=== PATIENT | female | born 1940 | race Caucasian/White ===

== ENCOUNTER 2018-10-18 19:30 | Inpatient (IN) | payer OTHER ==
[~2018-10-18] VITALS: Ht 170.2 cm; Wt 85.7 kg
[2018-10-18 19:32] VITALS: BP_SYST 147
[2018-10-18] MEDS ORDERED: NACL 0.9% 1,000 ML IV ONE (20:03)
[2018-10-18] MEDS ORDERED: IPRATROPIUM BROM 0.5 MG/2.5 ML VIAL.NEB (ATROVENT) IH ONE (20:15)
[2018-10-18] MEDS ORDERED: methylPREDNISolone SOD SUCC/PF 62.5 MG/ML VIAL IVP ONE (20:15)
[2018-10-18] MEDS ORDERED: ALBUTEROL SULFATE 0.083% 2.5 MG/3 ML VIAL.NEB IH ONE (20:15)
[2018-10-18] MEDS ORDERED: ASPIRIN 81 MG TAB.CHEW PO ONE (20:15)
[2018-10-18 20:41] LABS: HEMOGLOBIN 13.7 g/dL (12.0-16.0); MEAN CORPUSCULAR HEMOGLOBIN 31 pg (27-31); MEAN CORPUSCULAR HGB CONC 33 % (32-36); MEAN CORPUSCULAR VOLUME 92 fL (79.0-98.0); RED BLOOD CELL COUNT(AUTO) 4.44 MIL/uL (4.2-6.2); RED CELL DISTRIBUTION WIDTH 14.8 % (9.0-15.0)
[2018-10-18 20:42] LABS: BASOPHILS % (AUTO) 0.7 % (0.0-2.0); LYMPHOCYTES # (AUTO) 0.7 K/uL (1.0-5.5); MONOCYTES # (AUTO) 0.5 K/uL (0.0-1.0); MONOCYTES % (AUTO) 8.2 % (1.7-9.3); NEUTROPHILS # (AUTO) 4.8 K/uL (1.8-7.7); NEUTROPHILS % (AUTO) 80.1 % (40.0-70.0); PLATELET COUNT (AUTO) 262 K/uL (130-430)
[2018-10-18 20:49] LABS: PROTHROMBIN TIME 9.8 SECS (9.5-12.5)
[2018-10-18 22:03] LABS: ANION GAP 6 (5-15); CHLORIDE 108 mmol/L (98-107); CREATININE 0.79 mg/dL (0.55-1.30); GLUCOSE 104 mg/dL (70-99); POTASSIUM 3.9 mmol/L (3.5-5.1); SODIUM SERUM 137 mmol/L (136-145); UREA NITROGEN, BLOOD 22 mg/dL (8-21)
[2018-10-18 22:08] LABS: ALANINE AMINOTRANSFERASE 29 U/L (12-78); AMYLASE 45 U/L (0-100); ASPARTATE AMINOTRANSFERASE 25 U/L (10-37); LIPASE 118 U/L (73-393); TOTAL BILIRUBIN 0.3 mg/dL (0.0-1.0)
[2018-10-18] MEDS ORDERED: LISI40TA4 PO (22:16)
[2018-10-18] MEDS ORDERED: ALBMDI INH (22:18)
[2018-10-18] MEDS ORDERED: IPRA4AER INH (22:18)
[2018-10-18] MEDS ORDERED: FLUT1DIS5 IH (22:18)
[2018-10-18 22:30] LABS: BILIRUBIN,URINE NEGATIVE (NEGATIVE); BLOOD, URINE NEGATIVE (NEGATIVE); CLARITY/URINE CLEAR (CLEAR); COLOR,URINE YELLOW (YELLOW); GLUCOSE,URINE 1+ (NEGATIVE); KETONES,URINE NEGATIVE (NEGATIVE); LEUKOCYTE ESTERASE ,URINE TRACE (NEGATIVE); NITRITE, URINE NEGATIVE (NEGATIVE); PH,URINE 5.5 (5.0-8.0); PROTEIN URINE NEGATIVE (NEGATIVE); UROBILINOGEN,URINE 0.2 (0.2-1.0)
[2018-10-18 22:47] LABS: BACTERIA,URINE FEW /HPF (None Seen); RBC,URINE 0-3 /HPF (0-3)
[2018-10-19 00:27] VITALS: BP_SYST 158
[2018-10-19] MEDS: guaiFENesin/DEXTROMETHORPHAN 10 ML UDC PO PRN ×4 (01:52→22:04)
[2018-10-19] MEDS ORDERED: HYDROcodone/ACETAMIN 10-325 MG TAB PO PRN (06:30)
[2018-10-19] MEDS ORDERED: HYDROcodone/ACETAMIN 5-325 MG TAB (NORCO/ VICODIN) PO PRN (06:30)
[2018-10-19] MEDS ORDERED: LORazepam 2 MG/ML VIAL IVP PRN (06:30)
[2018-10-19] MEDS ORDERED: ACETAMINOPHEN 325 MG TABLET PO PRN (06:30)
[2018-10-19] MEDS ORDERED: ONDANSETRON HCL 4 MG/2 ML VIAL IVP PRN (06:30)
[2018-10-19] MEDS ORDERED: AZITHROMYCIN 500 MG in NS 250 ML IV SCH ×2 (06:30→09:00)
[2018-10-19 07:03] VITALS: BP_SYST 158
[2018-10-19] MEDS: ALBUTEROL SULFATE 0.083% 2.5 MG/3 ML VIAL.NEB INH SCH ×5 (07:06→23:07)
[2018-10-19] MEDS: IPRATROPIUM BROM 0.5 MG/2.5 ML VIAL.NEB (ATROVENT) INH SCH ×5 (07:06→23:07)
[2018-10-19 08:00] VITALS: BP_SYST 143
[2018-10-19] MEDS ORDERED: methylPREDNISolone SOD SUCC 40 MG/ML VIAL IVP SCH (09:00)
[2018-10-19] MEDS ORDERED: NON-FORMULARY MEDICATION (Fluticasone/Salmeterol (Advair 500-50 Diskus) 1 EACH) IH ONE (09:00)
[2018-10-19] MEDS: LISINOPRIL 20 MG TABLET PO SCH (09:32)
[2018-10-19] MEDS ORDERED: methylPREDNISolone SOD SUCC 40 MG/ML VIAL IVP ONE (11:30)
[2018-10-19 11:45] VITALS: BP_SYST 134
[2018-10-19] MEDS ORDERED: ENOXAPARIN SODIUM 40 MG/0.4 ML SYRINGE SUBCUT ONE (12:30)
[2018-10-19] MEDS: methylPREDNISolone SOD SUCC 40 MG/ML VIAL IVP SCH ×2 (13:05→22:00)
[2018-10-19] MEDS: LEVOFLOXACIN 500 MG/D5W 100 ML IV SCH (13:05)
[2018-10-19] MEDS: NORMAL SALINE 5 ML DISP.SYRIN IVF SCH ×2 (13:12→22:05)
[2018-10-19 15:15] VITALS: BP_SYST 118
[2018-10-19 19:43] VITALS: BP_SYST 128
[2018-10-20] VITALS (7 sets, daily range): BP systolic 137–145
[2018-10-20] MEDS: IPRATROPIUM BROM 0.5 MG/2.5 ML VIAL.NEB (ATROVENT) INH SCH ×6 (03:00→23:37)
[2018-10-20] MEDS: ALBUTEROL SULFATE 0.083% 2.5 MG/3 ML VIAL.NEB INH SCH ×6 (03:00→23:37)
[2018-10-20] MEDS: methylPREDNISolone SOD SUCC 40 MG/ML VIAL IVP SCH ×3 (05:30→21:55)
[2018-10-20] MEDS: NORMAL SALINE 5 ML DISP.SYRIN IVF SCH ×3 (05:35→22:02)
[2018-10-20 07:07] LABS: ANION GAP 6 (5-15); C-REACTIVE PROTEIN QUANT < 0.2 mg/dL (0-0.5); CALCIUM 8.8 mg/dL (8.4-11.0); CHLORIDE 107 mmol/L (98-107); CREATININE 0.95 mg/dL (0.55-1.30); GLUCOSE 146 mg/dL (70-99); POTASSIUM 4.1 mmol/L (3.5-5.1); SODIUM SERUM 138 mmol/L (136-145); UREA NITROGEN, BLOOD 22 mg/dL (8-21)
[2018-10-20 07:10] LABS: HEMATOCRIT 39.9 % (36-48); HEMOGLOBIN 13.3 g/dL (12.0-16.0); MEAN CORPUSCULAR HEMOGLOBIN 31 pg (27-31); MEAN CORPUSCULAR HGB CONC 33 % (32-36); MEAN CORPUSCULAR VOLUME 92 fL (79.0-98.0); RED BLOOD CELL COUNT(AUTO) 4.32 MIL/uL (4.2-6.2)
[2018-10-20 07:11] LABS: BASOPHILS % (AUTO) 0.2 % (0.0-2.0); LYMPHOCYTES # (AUTO) 0.9 K/uL (1.0-5.5); LYMPHOCYTES % (AUTO) 7.5 % (20.5-51.5); MONOCYTES # (AUTO) 0.7 K/uL (0.0-1.0); MONOCYTES % (AUTO) 5.5 % (1.7-9.3); NEUTROPHILS # (AUTO) 10.4 K/uL (1.8-7.7); NEUTROPHILS % (AUTO) 86.8 % (40.0-70.0); PLATELET COUNT (AUTO) 270 K/uL (130-430)
[2018-10-20 08:12] LABS: ERYTHROCYTE SEDIMENTATION RATE 7 MM/HR (0-20)
[2018-10-20] MEDS: LEVOFLOXACIN 500 MG/D5W 100 ML IV SCH (08:45)
[2018-10-20] MEDS: LISINOPRIL 20 MG TABLET PO SCH (08:56)
[2018-10-20] MEDS: ENOXAPARIN SODIUM 40 MG/0.4 ML SYRINGE SUBCUT SCH (08:57)
[2018-10-20] MEDS: guaiFENesin/DEXTROMETHORPHAN 10 ML UDC PO PRN (21:59)
[2018-10-21] MEDS: IPRATROPIUM BROM 0.5 MG/2.5 ML VIAL.NEB (ATROVENT) INH SCH ×5 (03:00→23:36)
[2018-10-21] MEDS: ALBUTEROL SULFATE 0.083% 2.5 MG/3 ML VIAL.NEB INH SCH ×5 (03:00→23:36)
[2018-10-21] MEDS: methylPREDNISolone SOD SUCC 40 MG/ML VIAL IVP SCH ×3 (05:25→19:29)
[2018-10-21] MEDS: NORMAL SALINE 5 ML DISP.SYRIN IVF SCH ×3 (05:27→21:36)
[2018-10-21 07:24] LABS: ALANINE AMINOTRANSFERASE 30 U/L (12-78); ALBUMIN 2.9 g/dL (3.4-4.8); ANION GAP 4 (5-15); ASPARTATE AMINOTRANSFERASE 28 U/L (10-37); CALCIUM 8.8 mg/dL (8.4-11.0); CHLORIDE 105 mmol/L (98-107); CREATININE 0.84 mg/dL (0.55-1.30); GLUCOSE 146 mg/dL (70-99); POTASSIUM 4.3 mmol/L (3.5-5.1); SODIUM SERUM 137 mmol/L (136-145); TOTAL BILIRUBIN 0.2 mg/dL (0.0-1.0); UREA NITROGEN, BLOOD 30 mg/dL (8-21)
[2018-10-21 07:42] LABS: C-REACTIVE PROTEIN QUANT < 0.2 mg/dL (0-0.5)
[2018-10-21 07:50] VITALS: BP_SYST 142
[2018-10-21] MEDS: BUDESONIDE 0.5 MG/2 ML AMPUL.NEB INH SCH ×2 (08:00→20:05)
[2018-10-21 08:01] LABS: HEMATOCRIT 39.7 % (36-48); HEMOGLOBIN 13.2 g/dL (12.0-16.0); MEAN CORPUSCULAR HEMOGLOBIN 31 pg (27-31); MEAN CORPUSCULAR HGB CONC 33 % (32-36); MEAN CORPUSCULAR VOLUME 92 fL (79.0-98.0); PLATELET COUNT (AUTO) 280 K/uL (130-430); RED BLOOD CELL COUNT(AUTO) 4.32 MIL/uL (4.2-6.2); WHITE BLOOD COUNT (AUTO) 12.3 K/uL (4.8-10.8)
[2018-10-21 08:02] LABS: BASOPHILS % (AUTO) 0.1 % (0.0-2.0); LYMPHOCYTES # (AUTO) 0.9 K/uL (1.0-5.5); LYMPHOCYTES % (AUTO) 7.4 % (20.5-51.5); MONOCYTES # (AUTO) 0.4 K/uL (0.0-1.0); MONOCYTES % (AUTO) 3.3 % (1.7-9.3); NEUTROPHILS % (AUTO) 89.2 % (40.0-70.0)
[2018-10-21] MEDS: LEVOFLOXACIN 500 MG/D5W 100 ML IV SCH (08:47)
[2018-10-21] MEDS: ENOXAPARIN SODIUM 40 MG/0.4 ML SYRINGE SUBCUT SCH (08:47)
[2018-10-21] MEDS: LISINOPRIL 20 MG TABLET PO SCH (08:48)
[2018-10-21 08:56] LABS: ERYTHROCYTE SEDIMENTATION RATE 7 MM/HR (0-20)
[2018-10-21 11:45] VITALS: BP_SYST 148
[2018-10-21] MEDS ORDERED: D5/0.45 NS 1,000 ML IV SCH (13:15)
[2018-10-21 15:35] VITALS: BP_SYST 143
[2018-10-21 20:36] VITALS: BP_SYST 140
[2018-10-21] MEDS ORDERED: FLUTICASONE 500 mCg/SALMETEROL 50 mCg DISKUS W.DEV INH SCH (21:00)
[2018-10-21] MEDS ORDERED: ADVAIR INH SCH (21:00)
[2018-10-21] MEDS: guaiFENesin/DEXTROMETHORPHAN 10 ML UDC PO PRN (21:33)
[2018-10-22 00:09] VITALS: BP_SYST 147
[2018-10-22] MEDS: IPRATROPIUM BROM 0.5 MG/2.5 ML VIAL.NEB (ATROVENT) INH SCH ×5 (03:00→19:49)
[2018-10-22] MEDS: ALBUTEROL SULFATE 0.083% 2.5 MG/3 ML VIAL.NEB INH SCH ×5 (03:00→19:48)
[2018-10-22] MEDS: methylPREDNISolone SOD SUCC 40 MG/ML VIAL IVP SCH ×2 (06:16→18:12)
[2018-10-22] MEDS: NORMAL SALINE 5 ML DISP.SYRIN IVF SCH ×3 (06:16→23:27)
[2018-10-22] MEDS: BUDESONIDE 0.5 MG/2 ML AMPUL.NEB INH SCH ×2 (07:00→19:49)
[2018-10-22 07:51] LABS: ANION GAP 9 (5-15); CALCIUM 8.3 mg/dL (8.4-11.0); CHLORIDE 106 mmol/L (98-107); GLUCOSE 147 mg/dL (70-99); SODIUM SERUM 141 mmol/L (136-145); UREA NITROGEN, BLOOD 25 mg/dL (8-21)
[2018-10-22 08:07] VITALS: BP_SYST 147
[2018-10-22 08:29] LABS: HEMATOCRIT 38.7 % (36-48); HEMOGLOBIN 12.7 g/dL (12.0-16.0); RED BLOOD CELL COUNT(AUTO) 4.19 MIL/uL (4.2-6.2); WHITE BLOOD COUNT (AUTO) 11.3 K/uL (4.8-10.8)
[2018-10-22 08:30] LABS: BASOPHILS % (AUTO) 0.1 % (0.0-2.0); LYMPHOCYTES # (AUTO) 1.2 K/uL (1.0-5.5); LYMPHOCYTES % (AUTO) 10.7 % (20.5-51.5); MEAN CORPUSCULAR HEMOGLOBIN 30 pg (27-31); MEAN CORPUSCULAR HGB CONC 33 % (32-36); MEAN CORPUSCULAR VOLUME 92 fL (79.0-98.0); MONOCYTES # (AUTO) 0.7 K/uL (0.0-1.0); MONOCYTES % (AUTO) 6.3 % (1.7-9.3); NEUTROPHILS # (AUTO) 9.4 K/uL (1.8-7.7); NEUTROPHILS % (AUTO) 82.9 % (40.0-70.0); PLATELET COUNT (AUTO) 272 K/uL (130-430); RED CELL DISTRIBUTION WIDTH 14.8 % (9.0-15.0)
[2018-10-22] MEDS: LEVOFLOXACIN 500 MG/D5W 100 ML IV SCH (08:40)
[2018-10-22] MEDS: LISINOPRIL 20 MG TABLET PO SCH (08:40)
[2018-10-22] MEDS: ENOXAPARIN SODIUM 40 MG/0.4 ML SYRINGE SUBCUT SCH (08:41)
[2018-10-22 12:02] VITALS: BP_SYST 145
[2018-10-22 16:15] VITALS: BP_SYST 154
[2018-10-22 20:15] VITALS: BP_SYST 169
[2018-10-22] MEDS: guaiFENesin/DEXTROMETHORPHAN 10 ML UDC PO PRN (23:27)
[2018-10-23 02:22] VITALS: BP_SYST 136
[2018-10-23] MEDS: NORMAL SALINE 5 ML DISP.SYRIN IVF SCH (06:53)
[2018-10-23] MEDS: methylPREDNISolone SOD SUCC 40 MG/ML VIAL IVP SCH (06:53)
[2018-10-23 07:17] LABS: ANION GAP 4 (5-15); CALCIUM 8.2 mg/dL (8.4-11.0); CHLORIDE 105 mmol/L (98-107); CREATININE 0.76 mg/dL (0.55-1.30); GLUCOSE 116 mg/dL (70-99); POTASSIUM 4.3 mmol/L (3.5-5.1); SODIUM SERUM 137 mmol/L (136-145); UREA NITROGEN, BLOOD 26 mg/dL (8-21)
[2018-10-23] MEDS: ALBUTEROL SULFATE 0.083% 2.5 MG/3 ML VIAL.NEB INH SCH ×2 (07:19→11:54)
[2018-10-23] MEDS: IPRATROPIUM BROM 0.5 MG/2.5 ML VIAL.NEB (ATROVENT) INH SCH ×2 (07:20→11:54)
[2018-10-23] MEDS: BUDESONIDE 0.5 MG/2 ML AMPUL.NEB INH SCH (07:20)
[2018-10-23 07:26] LABS: HEMATOCRIT 38.8 % (36-48); MEAN CORPUSCULAR HEMOGLOBIN 31 pg (27-31); MEAN CORPUSCULAR HGB CONC 33 % (32-36); MEAN CORPUSCULAR VOLUME 92 fL (79.0-98.0); PLATELET COUNT (AUTO) 280 K/uL (130-430); RED BLOOD CELL COUNT(AUTO) 4.23 MIL/uL (4.2-6.2); RED CELL DISTRIBUTION WIDTH 14.4 % (9.0-15.0); WHITE BLOOD COUNT (AUTO) 11.3 K/uL (4.8-10.8)
[2018-10-23 07:27] LABS: BASOPHILS % (AUTO) 0.1 % (0.0-2.0); LYMPHOCYTES # (AUTO) 1.5 K/uL (1.0-5.5); LYMPHOCYTES % (AUTO) 12.9 % (20.5-51.5); MONOCYTES # (AUTO) 0.8 K/uL (0.0-1.0); MONOCYTES % (AUTO) 6.7 % (1.7-9.3); NEUTROPHILS # (AUTO) 9.1 K/uL (1.8-7.7); NEUTROPHILS % (AUTO) 80.3 % (40.0-70.0)
[2018-10-23 07:57] LABS: C-REACTIVE PROTEIN QUANT < 0.2 mg/dL (0-0.5)
[2018-10-23 08:10] VITALS: BP_SYST 135
[2018-10-23] MEDS: LEVOFLOXACIN 500 MG/D5W 100 ML IV SCH (09:03)
[2018-10-23] MEDS: LISINOPRIL 20 MG TABLET PO SCH (09:04)
[2018-10-23] MEDS: ENOXAPARIN SODIUM 40 MG/0.4 ML SYRINGE SUBCUT SCH (09:05)
[2018-10-23 09:09] LABS: ERYTHROCYTE SEDIMENTATION RATE 5 MM/HR (0-20)
[2018-10-23 11:32] VITALS: BP_SYST 141
[2018-10-23 12:05] VITALS: BP_SYST 135
[2018-10-23] MEDS ORDERED: MED4 PO (12:16)
[2018-10-23] MEDS ORDERED: LEVO750T45 PO (12:17)
== END 2018-10-23 13:20 | disposition home or self-care (01) | DRG 189 ==
LOC: SED 19:30 → STU 23:59
PROVIDERS: ADMIT Preventive Medicine Preventive Medicine/Occupational Environmental Medicine; ATTEND Preventive Medicine Preventive Medicine/Occupational Environmental Medicine
DX: J96.21 Acute and chronic respiratory failure with hypoxia (principal); E43 Unspecified severe protein-calorie malnutrition; J44.1 Chronic obstructive pulmonary disease with (acute) exacerbation; J45.901 Unspecified asthma with (acute) exacerbation; J44.0 Chronic obstructive pulmonary disease with (acute) lower respiratory infection; E44.0 Moderate protein-calorie malnutrition; E87.2 Acidosis; N39.0 Urinary tract infection, site not specified; R65.10 Systemic inflammatory response syndrome (SIRS) of non-infectious origin without acute organ dysfunction; J20.9 Acute bronchitis, unspecified; I10 Essential (primary) hypertension; E83.51 Hypocalcemia; T38.0X5A Adverse effect of glucocorticoids and synthetic analogues, initial encounter; E88.09 Other disorders of plasma-protein metabolism, not elsewhere classified; Z80.0 Family history of malignant neoplasm of digestive organs; Z82.3 Family history of stroke; Z87.891 Personal history of nicotine dependence; Z90.710 Acquired absence of both cervix and uterus; Y92.89 Other specified places as the place of occurrence of the external cause; Z88.0 Allergy status to penicillin; Z79.899 Other long term (current) drug therapy; Z90.49 Acquired absence of other specified parts of digestive tract; Z68.29 Body mass index [BMI] 29.0-29.9, adult
CPT/HCPCS: 36415; 36600; 71045; 80048; 80053; 81000-TC; 82150-TC; 82550-TC; 82803-TC; 83605; 83690-TC; 83880; 84484; 85025; 85379; 85610-TC; 85651-TC; 85730-TC; 86140; 86710; 87040-TC; 87086; 93005; 94640; 94760; 96361; 96374; 99285; G0378; J0456; J1030; J1650; J1956; J2060; J2930; J7030; J7050; J7613; J7626

== ENCOUNTER 2023-05-13 17:05 | Inpatient (IN) | payer OTHER ==
[~2023-05-13] VITALS: Ht 165.1 cm; Wt 67.1 kg
[~2023-05-13 17:05] MED LIST: ALBMDI INH; DOCU-144 PO; FLUT1DIS5 IH; IPRA4AER INH; LEVO-62 PO; LISI40TA13 PO; MED4 PO; ROSU10TA2 PO; TAMS0.4C96 PO
[2023-05-13 17:28] VITALS: BP_SYST 147; PULSE 96; RESP 22; TEMP 98.3; O2SAT 96
[2023-05-13 17:41] LABS: BASOPHILS % (AUTO) 0.2 % (0.0-2.0); EOSINOPHILS % (AUTO) 0.1 % (0.0-4.0); HEMATOCRIT 36.7 % (36-48); HEMOGLOBIN 11.8 g/dL (12.0-16.0); LYMPHOCYTES # (AUTO) 0.3 K/uL (1.0-5.5); LYMPHOCYTES % (AUTO) 7.4 % (20.5-51.5); MEAN CORPUSCULAR HEMOGLOBIN 29 pg (27-31); MEAN CORPUSCULAR HGB CONC 32 % (32-36); MEAN CORPUSCULAR VOLUME 89 fL (79.0-98.0); MONOCYTES # (AUTO) 0.4 K/uL (0.0-1.0); MONOCYTES % (AUTO) 8.1 % (1.7-9.3); NEUTROPHILS # (AUTO) 3.8 K/uL (1.8-7.7); NEUTROPHILS % (AUTO) 84.2 % (40.0-70.0); PLATELET COUNT (AUTO) 249 K/uL (130-430); RED BLOOD CELL COUNT(AUTO) 4.14 MIL/uL (4.2-6.2); RED CELL DISTRIBUTION WIDTH 20.6 % (9.0-15.0); WHITE BLOOD COUNT (AUTO) 4.5 K/uL (4.8-10.8)
[2023-05-13] MEDS ORDERED: methylPREDNISolone SOD SUCC/PF 62.5 MG/ML VIAL IVP ONE (18:00)
[2023-05-13 18:05] LABS: ALANINE AMINOTRANSFERASE 53 U/L (12-78); ALBUMIN 3.5 g/dL (3.4-4.8); ANION GAP 10 (5-15); ASPARTATE AMINOTRANSFERASE 48 U/L (10-37); CALCIUM 7.5 mg/dL (8.4-11.0); CARBON DIOXIDE 23 mmol/L (23-29); CHLORIDE 105 mmol/L (98-107); CREATININE 0.95 mg/dL (0.55-1.30); GLUCOSE 100 mg/dL (74-106); SODIUM SERUM 138 mmol/L (136-145); TOTAL BILIRUBIN 0.1 mg/dL (0.0-1.0); TOTAL PROTEIN, SERUM 6.5 g/dL (6.4-8.3); UREA NITROGEN, BLOOD 18 mg/dL (8-21)
[2023-05-13 18:10] LABS: BILIRUBIN,URINE NEGATIVE (NEGATIVE); CLARITY/URINE CLEAR (CLEAR); COLOR,URINE YELLOW (YELLOW); GLUCOSE,URINE NEGATIVE (NEGATIVE); KETONES,URINE NEGATIVE (NEGATIVE); LEUKOCYTE ESTERASE ,URINE NEGATIVE (NEGATIVE); NITRITE, URINE NEGATIVE (NEGATIVE); PH,URINE 5.5 (5.0-8.0); PROTEIN URINE TRACE (NEGATIVE); UROBILINOGEN,URINE 0.2 (0.2-1.0)
[2023-05-13 18:12] LABS: BLOOD, URINE TRACE (NEGATIVE)
[2023-05-13 18:21] LABS: BACTERIA,URINE None Seen /HPF (None Seen)
[2023-05-13] MEDS ORDERED: ACETAMINOPHEN 325 MG TABLET PO PRN (19:15)
[2023-05-13] MEDS ORDERED: IPRATROPIUM/ALBUTEROL SULFATE 3 ML AMPUL.NEB (DUONEB) INH PRN (19:15)
[2023-05-13] MEDS ORDERED: ONDANSETRON HCL 4 MG/2 ML VIAL IVP PRN (19:15)
[2023-05-13] MEDS ORDERED: KETOROLAC TROMETHAMINE 30 MG VIAL IVP ONE (19:15)
[2023-05-13] MEDS ORDERED: POTASSIUM CHLORIDE 20 MEQ TAB.PRT.SR PO PRN (19:15)
[2023-05-13] MEDS ORDERED: LORazepam 2 MG/ML VIAL IVP PRN (19:15)
[2023-05-13] MEDS ORDERED: DOCUSATE SODIUM 100 MG CAPSULE PO PRN (19:15)
[2023-05-13] MEDS ORDERED: ZOLPIDEM TARTRATE 5 MG TABLET PO PRN (19:15)
[2023-05-13] MEDS ORDERED: MORPHINE 2 MG/ML INJ. SYRINGE IVP PRN ×2 (19:15)
[2023-05-13] MEDS ORDERED: MAGNESIUM SULFATE 50 ML IV PRN (19:15)
[2023-05-13] MEDS ORDERED: MUPIROCIN 2% TOPICAL OINTMENT 22 GM NS PRN (19:15)
[2023-05-13 19:17] LABS: INFLUENZA TYPE B NEGATIVE (NEGATIVE)
[2023-05-13 19:24] LABS: INFLUENZA TYPE A POSITIVE (NEGATIVE)
[2023-05-13] MEDS: NACL 0.9% 1,000 ML IV SCH (20:04)
[2023-05-13] MEDS: TAMSULOSIN HCL 0.4 MG CAP PO SCH (21:00)
[2023-05-13] MEDS: METOPROLOL TARTRATE 25 MG TABLET PO SCH (21:00)
[2023-05-13] MEDS ORDERED: BUDESONIDE/FORMOTEROL 160-4.5 mCg, 6 GM INHALER INH SCH (21:00)
[2023-05-13] MEDS: HEPARIN SODIUM,PORCINE 5,000 UNITS/ML VIAL SUBCUT SCH (21:00)
[2023-05-13] MEDS ORDERED: FLUTICASONE PROPIONATE 110 mCg/ACTUATION, 12 GM AER.W.ADAP INH SCH (21:00)
[2023-05-13 23:01] VITALS: BP_SYST 124; PULSE 72; RESP 18; TEMP 97.7; O2SAT 96
[2023-05-13] MEDS: ACETAMINOPHEN 325 MG TABLET PO PRN (23:48)
[2023-05-14] VITALS (9 sets, daily range): BP systolic 118–130; PULSE 71–87; RESP 18–20; TEMP 97.5–98.1; O2SAT 92–99
[2023-05-14] MEDS: ALBUTEROL SULFATE 0.083% 2.5 MG/3 ML VIAL.NEB INH SCH ×4 (01:35→20:23)
[2023-05-14] MEDS: BUDESONIDE 0.5 MG/2 ML AMPUL.NEB INH SCH ×2 (07:29→20:23)
[2023-05-14 07:35] LABS: BASOPHILS % (AUTO) 0.2 % (0.0-2.0); HEMATOCRIT 35.2 % (36-48); HEMOGLOBIN 11.1 g/dL (12.0-16.0); LYMPHOCYTES # (AUTO) 0.3 K/uL (1.0-5.5); MEAN CORPUSCULAR HEMOGLOBIN 29 pg (27-31); MEAN CORPUSCULAR HGB CONC 32 % (32-36); MEAN CORPUSCULAR VOLUME 90 fL (79.0-98.0); MONOCYTES # (AUTO) 0.1 K/uL (0.0-1.0); MONOCYTES % (AUTO) 4.6 % (1.7-9.3); NEUTROPHILS # (AUTO) 2.8 K/uL (1.8-7.7); NEUTROPHILS % (AUTO) 85.2 % (40.0-70.0); PLATELET COUNT (AUTO) 198 K/uL (130-430); WHITE BLOOD COUNT (AUTO) 3.3 K/uL (4.8-10.8)
[2023-05-14 07:43] LABS: ANION GAP 13 (5-15); CARBON DIOXIDE 17 mmol/L (23-29); CHLORIDE 112 mmol/L (98-107); CREATININE 0.64 mg/dL (0.55-1.30); GLUCOSE 116 mg/dL (74-106); POTASSIUM 3.6 mmol/L (3.5-5.1); SODIUM SERUM 142 mmol/L (136-145); UREA NITROGEN, BLOOD 19 mg/dL (8-21)
[2023-05-14 07:50] LABS: CALCIUM 6.4 mg/dL (8.4-11.0)
[2023-05-14] MEDS: lisinopriL 20 MG TABLET PO SCH (08:30)
[2023-05-14] MEDS: METOPROLOL TARTRATE 25 MG TABLET PO SCH ×2 (08:31→08:41)
[2023-05-14] MEDS: ATORVASTATIN 20 MG TABLET PO SCH (08:31)
[2023-05-14] MEDS: HEPARIN SODIUM,PORCINE 5,000 UNITS/ML VIAL SUBCUT SCH ×2 (08:39→21:24)
[2023-05-14] MEDS: NACL 0.9% 1,000 ML IV SCH ×2 (08:40→23:50)
[2023-05-14] MEDS ORDERED: ROSUVASTATIN CALCIUM 5 MG/TAB (CRESTOR) PO SCH (09:00)
[2023-05-14] MEDS ORDERED: CALCIUM CARBONATE 500 MG/ TAB.CHEW PO SCH (09:00)
[2023-05-14] MEDS ORDERED: OSELTAMIVIR PHOSPHATE 75 MG CAPSULE PO ONE (09:30)
[2023-05-14] MEDS: CALCIUM CARBONATE 500 MG/ TAB.CHEW PO SCH ×2 (09:37→21:19)
[2023-05-14] MEDS ORDERED: traMADol HCL HCL 50 MG TABLET (ULTRAM) PO PRN (18:45)
[2023-05-14] MEDS: TAMSULOSIN HCL 0.4 MG CAP PO SCH (21:19)
[2023-05-14] MEDS: OSELTAMIVIR PHOSPHATE 75 MG CAPSULE PO SCH (21:19)
[2023-05-15] VITALS (7 sets, daily range): BP systolic 122–149; PULSE 65–78; RESP 18–20; TEMP 98–98.2; O2SAT 96–100
[2023-05-15] MEDS: ALBUTEROL SULFATE 0.083% 2.5 MG/3 ML VIAL.NEB INH SCH ×4 (01:00→20:01)
[2023-05-15 05:25] LABS: BASOPHILS % (AUTO) 0.3 % (0.0-2.0); EOSINOPHILS % (AUTO) 0.2 % (0.0-4.0); HEMATOCRIT 34.5 % (36-48); LYMPHOCYTES % (AUTO) 25.8 % (20.5-51.5); MEAN CORPUSCULAR HEMOGLOBIN 28 pg (27-31); MEAN CORPUSCULAR HGB CONC 32 % (32-36); MEAN CORPUSCULAR VOLUME 89 fL (79.0-98.0); MONOCYTES # (AUTO) 0.4 K/uL (0.0-1.0); MONOCYTES % (AUTO) 11.5 % (1.7-9.3); NEUTROPHILS # (AUTO) 2.4 K/uL (1.8-7.7); NEUTROPHILS % (AUTO) 62.2 % (40.0-70.0); PLATELET COUNT (AUTO) 208 K/uL (130-430); RED CELL DISTRIBUTION WIDTH 20.7 % (9.0-15.0); WHITE BLOOD COUNT (AUTO) 3.8 K/uL (4.8-10.8)
[2023-05-15 05:36] LABS: ANION GAP 7 (5-15); CALCIUM 7.5 mg/dL (8.4-11.0); CARBON DIOXIDE 24 mmol/L (23-29); CHLORIDE 111 mmol/L (98-107); CREATININE 0.78 mg/dL (0.55-1.30); GLUCOSE 87 mg/dL (74-106); SODIUM SERUM 142 mmol/L (136-145); UREA NITROGEN, BLOOD 25 mg/dL (8-21)
[2023-05-15] MEDS: BUDESONIDE 0.5 MG/2 ML AMPUL.NEB INH SCH ×2 (08:21→20:00)
[2023-05-15] MEDS: OSELTAMIVIR PHOSPHATE 75 MG CAPSULE PO SCH ×2 (09:27→20:12)
[2023-05-15] MEDS: ATORVASTATIN 20 MG TABLET PO SCH (09:27)
[2023-05-15] MEDS: CALCIUM CARBONATE 500 MG/ TAB.CHEW PO SCH ×2 (09:27→20:11)
[2023-05-15] MEDS: lisinopriL 20 MG TABLET PO SCH (09:28)
[2023-05-15] MEDS: HEPARIN SODIUM,PORCINE 5,000 UNITS/ML VIAL SUBCUT SCH (09:29)
[2023-05-15] MEDS: NACL 0.9% 1,000 ML IV SCH (14:54)
[2023-05-15] MEDS: methylPREDNISolone SOD SUCC/PF 62.5 MG/ML VIAL IVP SCH ×2 (15:58→21:41)
[2023-05-15] MEDS ORDERED: VANCOMYCIN HCL 1 GM/NS PREMIX 250 ML IV ONE (20:00)
[2023-05-15] MEDS: TAMSULOSIN HCL 0.4 MG CAP PO SCH (20:11)
[2023-05-15] MEDS ORDERED: VANCOMYCIN HCL 1000 MG/VIAL IV ONE (20:38)
[2023-05-15] MEDS: ACETAMINOPHEN 325 MG TABLET PO PRN (21:10)
[2023-05-16] VITALS (8 sets, daily range): BP systolic 119–146; PULSE 67–83; RESP 16–20; TEMP 97.7–98.6; O2SAT 92–98
[2023-05-16] MEDS: ALBUTEROL SULFATE 0.083% 2.5 MG/3 ML VIAL.NEB INH SCH ×4 (01:00→19:47)
[2023-05-16] MEDS: NACL 0.9% 1,000 ML IV SCH (05:15)
[2023-05-16] MEDS: methylPREDNISolone SOD SUCC/PF 62.5 MG/ML VIAL IVP SCH ×3 (06:18→21:03)
[2023-05-16 06:36] LABS: HEMOGLOBIN 11.1 g/dL (12.0-16.0); MEAN CORPUSCULAR HEMOGLOBIN 29 pg (27-31); MEAN CORPUSCULAR HGB CONC 33 % (32-36); MEAN CORPUSCULAR VOLUME 87 fL (79.0-98.0); PLATELET COUNT (AUTO) 203 K/uL (130-430); RED CELL DISTRIBUTION WIDTH 20.2 % (9.0-15.0); WHITE BLOOD COUNT (AUTO) 2.7 K/uL (4.8-10.8)
[2023-05-16 06:54] LABS: ANION GAP 10 (5-15); CALCIUM 7.7 mg/dL (8.4-11.0); CARBON DIOXIDE 22 mmol/L (23-29); CHLORIDE 108 mmol/L (98-107); CREATININE 0.75 mg/dL (0.55-1.30); GLUCOSE 148 mg/dL (74-106); POTASSIUM 4.2 mmol/L (3.5-5.1); SODIUM SERUM 140 mmol/L (136-145); UREA NITROGEN, BLOOD 18 mg/dL (8-21)
[2023-05-16] MEDS: BUDESONIDE 0.5 MG/2 ML AMPUL.NEB INH SCH ×2 (07:53→19:47)
[2023-05-16] MEDS: OSELTAMIVIR PHOSPHATE 75 MG CAPSULE PO SCH ×2 (09:51→22:11)
[2023-05-16] MEDS: ATORVASTATIN 20 MG TABLET PO SCH (09:52)
[2023-05-16] MEDS: ENOXAPARIN SODIUM 30 MG/0.3 ML SYRINGE SUBCUT SCH (09:52)
[2023-05-16] MEDS: lisinopriL 20 MG TABLET PO SCH (09:52)
[2023-05-16] MEDS: CALCIUM CARBONATE 500 MG/ TAB.CHEW PO SCH ×2 (09:52→22:11)
[2023-05-16] MEDS: VANCOMYCIN HCL 750 MG in NS 250 ML IV SCH ×2 (11:03→21:02)
[2023-05-16] MEDS: TAMSULOSIN HCL 0.4 MG CAP PO SCH (22:11)
[2023-05-17] MEDS: NACL 0.9% 1,000 ML IV SCH ×2 (01:19→09:07)
[2023-05-17 07:34] LABS: BASOPHILS % (AUTO) 0.1 % (0.0-2.0); HEMATOCRIT 36.6 % (36-48); HEMOGLOBIN 11.6 g/dL (12.0-16.0); LYMPHOCYTES # (AUTO) 0.6 K/uL (1.0-5.5); MEAN CORPUSCULAR HEMOGLOBIN 28 pg (27-31); MEAN CORPUSCULAR HGB CONC 32 % (32-36); MEAN CORPUSCULAR VOLUME 88 fL (79.0-98.0); MONOCYTES # (AUTO) 0.5 K/uL (0.0-1.0); MONOCYTES % (AUTO) 8.8 % (1.7-9.3); NEUTROPHILS # (AUTO) 4.7 K/uL (1.8-7.7); NEUTROPHILS % (AUTO) 80.1 % (40.0-70.0); PLATELET COUNT (AUTO) 203 K/uL (130-430); RED BLOOD CELL COUNT(AUTO) 4.17 MIL/uL (4.2-6.2); RED CELL DISTRIBUTION WIDTH 20.1 % (9.0-15.0); WHITE BLOOD COUNT (AUTO) 5.9 K/uL (4.8-10.8)
[2023-05-17 07:54] LABS: ANION GAP 8 (5-15); CALCIUM 7.7 mg/dL (8.4-11.0); CARBON DIOXIDE 24 mmol/L (23-29); CHLORIDE 109 mmol/L (98-107); CREATININE 0.82 mg/dL (0.55-1.30); GLUCOSE 155 mg/dL (74-106); POTASSIUM 4.5 mmol/L (3.5-5.1); SODIUM SERUM 141 mmol/L (136-145); UREA NITROGEN, BLOOD 25 mg/dL (8-21)
[2023-05-17 08:25] VITALS: O2SAT 93
[2023-05-17] MEDS: ALBUTEROL SULFATE 0.083% 2.5 MG/3 ML VIAL.NEB INH SCH ×2 (08:27→14:47)
[2023-05-17] MEDS: BUDESONIDE 0.5 MG/2 ML AMPUL.NEB INH SCH (08:27)
[2023-05-17 08:35] VITALS: BP_SYST 151; PULSE 81; RESP 17; TEMP 99.1; O2SAT 95
[2023-05-17] MEDS: ATORVASTATIN 20 MG TABLET PO SCH (09:00)
[2023-05-17] MEDS: CALCIUM CARBONATE 500 MG/ TAB.CHEW PO SCH (09:00)
[2023-05-17] MEDS: OSELTAMIVIR PHOSPHATE 75 MG CAPSULE PO SCH (09:00)
[2023-05-17] MEDS: lisinopriL 20 MG TABLET PO SCH (09:00)
[2023-05-17] MEDS: ENOXAPARIN SODIUM 30 MG/0.3 ML SYRINGE SUBCUT SCH (09:00)
[2023-05-17] MEDS ORDERED: ALBMDI INH (09:01)
[2023-05-17] MEDS ORDERED: OSEL75CA PO (09:01)
[2023-05-17] MEDS: VANCOMYCIN HCL 750 MG in NS 250 ML IV SCH (09:19)
[2023-05-17 11:14] VITALS: O2SAT 95
[2023-05-17 14:45] VITALS: O2SAT 94
[2023-05-17] MEDS: methylPREDNISolone SOD SUCC/PF 62.5 MG/ML VIAL IVP SCH (16:11)
[2023-05-17 16:54] VITALS: BP_SYST 108; PULSE 90; RESP 19; TEMP 98.6; O2SAT 98
== END 2023-05-17 17:15 | disposition home or self-care (01) | DRG 871 ==
LOC: SED 17:05 → SMU 18:42
PROVIDERS: ADMIT General Practice; ATTEND General Practice
DX: A41.9 Sepsis, unspecified organism (principal); J96.01 Acute respiratory failure with hypoxia; J44.1 Chronic obstructive pulmonary disease with (acute) exacerbation; J10.1 Influenza due to other identified influenza virus with other respiratory manifestations; E83.51 Hypocalcemia; I10 Essential (primary) hypertension; E78.5 Hyperlipidemia, unspecified; Z20.822 Contact with and (suspected) exposure to COVID-19; Z90.710 Acquired absence of both cervix and uterus; Z88.0 Allergy status to penicillin; Z79.899 Other long term (current) drug therapy; Z87.891 Personal history of nicotine dependence; Z85.3 Personal history of malignant neoplasm of breast
CPT/HCPCS: 36415; 71045; 80048; 80053; 80202; 81000; 83037; 83605; 83735; 84484; 85025; 87040; 87086; 93005; 94640; 94760; 97116-GP; 97530-GP; 99285; G9035; J1644; J1650; J1885; J1956; J2930; J3370; J7050; J7626